=== PATIENT | female | born 1975 | race Caucasian/White ===

== ENCOUNTER 2018-05-12 15:42 | Emergency (ER) | payer OTHER ==
--- OUTSIDE RECORDS SUMMARY | 2018-05-12 15:47 | XMS REPORT | Continuity of Care Document ---
:1975 External Reference #:[id number] Author Name Mine Duque O.D. Address [address] [place] [address] Care Team Providers Name Role Phone Joao Ventura M.D. Primary Care Physician Unavailable Payers Date Identification Numbers Payment Provider Subscriber Policy Number: [id number] [employer] Medicaid Jackelyn Cohen PayID: [id number] [address] [place] [address] Advance Directives Description No Information Available Problems Date Description Provider Status Onset: Anxiety Active Onset: Insomnia Active Onset: 05/04/2015 Tear film insufficiency Mine Duque O.D. Active Onset: 05/04/2015 Myopia Mine Duque O.D. Active Onset: 05/04/2015 Regular astigmatism Mine Duque O.D. Active Onset: 05/04/2015 Presbyopia Mine Duque O.D. Active Onset: 05/04/2015 Vitreous degeneration Mine Duque O.D. Active Onset: Diabetes mellitus Active Family History Date Family Member(s) Observation Comments Father Diabetes Mellitus Type 2 Mother No Current Problems Grandmother Glaucoma Social History Type Date Description Comments Sex Unknown Marital Status Legal Status: Occupation [employer] Work Status Part-Time Employment ETOH Use Currently consumes alcohol Tobacco Use Start: Unknown Patient has never smoked Recreational Drug Use Denies Drug Use Smoking Status Reviewed: 05/03/18 Patient has never smoked Allergies, Adverse Reactions, Alerts Description No Known Drug Allergies Medications Medication Date Status Form Strength Qnty SIG Indications Ordering Provider Bupropion HCL ER Active Tablets ER 300mg Silcoff, (XL) 000 24HR Reynold Shepherd Alprazolam 0 Active Tablets 1mg Silcoff, 000 Reynold Shepherd Chlorthalidone 0 Active Tablets 25mg Unknown 000 Propranolol HCL 0 Active Tablets 60mg Unknown 000 Atorvastatin 0 Active Tablets 10mg Unknown Calcium 000 Glipizide 0 Active Tablets 5mg Unknown 000 Metformin HCL 0 Active Tablets 1000mg (2000 Unknown 000 MG daily) Potassium Active Tablets 75mg Unknown 000 Bupropion HCL ER 0 Hx Tablets ER 150mg Silcoff, (XL) 000 - 24HR Joao, M.DJessie 019 Clonidine HCL 0 Hx Tablets 0.1mg Silcoff, 000 - Joao, MJessieDJessie 019 Immunizations Description No Information Available Vital Signs Description No Information Available Results Description No Information Available Procedures Date Code Description Status 05/04/2015 25508 Determination Of Refractive State Completed 05/04/2015 33435 New Patient Comprehensive Exam Completed Encounters Description No Information Available Plan of Treatment 05/03/2018 - Mine Duque O.D.H04.123 Dry eye syndrome of bilateral lacrimal glandsComments:Both of your eyes appear to be dry. Use artificial tears as directed. You can use the tears more often if you are reading a book or are on the computer, as we tend to blink less, making our eyes dry out more.[facility] offers a few items in our optical department to help alleviate dry eye symptoms.Follow up:1 year You can expect to have your eyes dilated at your next visit. If Dr. Duque orders any additional testing, it may require extra time. We recommend that you bring sunglasses, as dilation drops often make you light sensitive until they wear off. We always recommend you bring someone to drive you home if you are uncomfortable driving with your eyes dilated. If you have any questions before your next visit, feel free to call our office at .E11.9 Type 2 diabetes mellitus without complicationsComments:You have diabetes. I do not detect any changes in both of your retinas from diabetes at this time. Proper control of your diabetes is important for the health of your eyes. Changes in your eyes from diabetes can happen without symptoms, so it is important that you have your eyes examined.H52.13 Myopia, bilateralComments:You have Myopia, or near sightedness. I have given you a prescription for glasses.H52.4 PresbyopiaComments:You have presbyopia. This is when the lens in your eye loses the ability to change focus, and happens as we age. A pair of reading glasses will help you see up close.H52.223 Regular astigmatism, bilateralComments:Astigmatism is a common vision condition that happens when a person's cornea is not symmetrical. Dr. Duque has given you a prescription to correct for this.
--- OUTSIDE RECORDS SUMMARY | 2018-05-12 15:47 | XMS REPORT | Continuity of Care Document ---
:1975 External Reference #:[id number] Author Name Covert, Aimee Care Team Providers Name Role Phone Joao Ventura MD Primary Care Physician Unavailable Payers Date Identification Numbers Payment Provider Subscriber Policy Number: [id number] [employer] Medicaid Jackelyn Cohen PayID: [id number] [address] [address] [place] [address] Advance Directives Description No Information Available Problems Date Description Provider Status Onset: 04/30/2018 Type II diabetes mellitus uncontrolled Matt Ventura MD Active Onset: 04/30/2018 Essential hypertension Matt Ventura MD Active Onset: 04/30/2018 Hyperlipidemia Matt Ventura MD Active Family History Date Family Member(s) Observation Comments Father due to Colon Cancer () - age 67 Father Diabetes Type II Father MT Father Stroke Siblings 3 3 1/2 brothers Social History Type Date Description Comments Sex Unknown Marital Status Lives With Children Occupation [employer] ETOH Use Occasionally consumes 1 glass per day. 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 strength 3 days per week, cardio between, Allergies, Adverse Reactions, Alerts Date Description Reaction Status Severity Comments 04/02/2018 Sulfa Antibiotics Active rash Medications Medication Date Status Form Strength Qnty SIG Indications Ordering Provider Alogliptin 04/30/ Active Tablets 25mg 90tabs Take one E11.65 Gutierrez Benzoate 2019 tablet by MD Audrey mouth daily. Metformin HCL ER 00/ Active Tablets ER 500mg 2 tablets Unknown (Mod) 0000 24HR in the am and 2 tablets pm by mouth every day True Metrix 00/ Active Kit W/Device for Unknown Meter 0000 testing daily True Metrix 00/ Active Strips use to Unknown Blood 0000 test blood Glucosetest sugars Strips fasting and 2 hours after meals Lancets Super 00/ Active Misc Thin 28G weekly Unknown Thin 28G 0000 before breakfast Zolpidem / Active Tablets 5mg 1 at at Unknown Tartrate 0000 bedtime Bupropion HCL ER 00/ Active Tablets ER 300mg 1 by mouth Unknown (XL) 0000 24HR every day Chlorthalidone / Active Tablets 25mg 1 by mouth Unknown 0000 every day Propranolol HCL / Active Tablets 60mg 1 by mouth Unknown 0000 every day Vitamin D3 / Active Capsules 5000Unit 1-2 by Unknown 0000 mouth every day Alprazolam / Active Tablets 1mg up to 3 Unknown 0000 tablets per day as needed Potassium 0000/ Active Tablets ER 20Meq 1 by mouth Unknown Chloride Caren ER 0000 every day True Metrix 00/ Active Strips use to Unknown Blood 0000 test blood Glucosetest sugars Strips fasting and 2 hours after meals Atorvastatin / Active Tablets 10mg 1 by mouth Unknown Calcium 0000 every day Glipizide 04/02/ Hx Tablets 5mg 30tabs take one E11.65 Gutierrez 2019 - tablet by MD Audrey mouth 2018 twice a day Immunizations Description No Information Available Vital Signs Date Vital Result Comment 04/30/2018 4:01pm Height 64 inches 5'4" Weight 146.00 lb w/o shoes Heart Rate 77 /min BP Systolic Sitting 123 mmHg BP Diastolic Sitting 78 mmHg BMI (Body Mass Index) 25.1 kg/m2 04/02/2018 3:53pm Height 64 inches 5'4" Weight 154.00 lb w/o shoes Heart Rate 90 /min BP Systolic Sitting 132 mmHg BP Diastolic Sitting 87 mmHg BMI (Body Mass Index) 26.4 kg/m2 Results Test Date Facility Test Result H/L Range Note Laboratory test 04/30/2018 [facility] Glucose Random 103 finding Laboratory test 04/02/2018 [facility] Glutamic Acid 0.02 nmol/L <=0.02 [address] [place] [address] [phone] Glucose 192 mg/dL High 70-100 C-Peptide 4.3 ng/mL 1.1 - 4.4 2 Aldosterone 7.8 ng/dL <=21 3 Renin 2.4 ng/mL/h 4 Laboratory test finding 04/02/2018 [facility] [place] Glucose Random 179 1 ADDITIONAL INFORMATION This test was developed and its performance characteristics determined by [facility] in a manner consistent with CLIA requirements. This test has not been cleared or approved by the U.S. Food and Drug Administration. Test Performed by: [facility] [place] - [address] [address] Test Performed by: [facility] [place] - [facility] [employer] [address] [place] [id number] 3 ADDITIONAL INFORMATION Reference range for patients 11 years and older is based on upright A.M. collection from subjects without sodium restrictions. This test was developed and its performance characteristics determined by [facility] in a manner consistent with CLIA requirements. This test has not been cleared or approved by the U.S. Food and Drug Administration. Test Performed by: [facility] - [address] [address] REFERENCE VALUE (Peripheral vein specimen) Na-deplete, upright: Mean: 5.9 Range: 2.9-10.8 Na-replete, upright: Mean: 1.0 Range: < or=0.6-3.0 ADDITIONAL INFORMATION Testing performed by Liquid Chromatography-Tandem Mass Spectrometry (LC-MS/MS). This test was developed and its performance characteristics determined by [facility] in a manner consistent with CLIA requirements. This test has not been cleared or approved by the U.S. Food and Drug Administration. Test Performed by: [facility] - [facility] [address], [place] [address] Procedures Description No Information Available Encounters Type Date Location Provider Dx Diagnosis Office Visit 04/02/2018 [place] [facility] Matt Ventura MD Z79.84 nursing home (current) 4:00p [facility] use of oral hypoglycemic drugs E11.65 Type 2 diabetes mellitus with hyperglycemia I10 Essential (primary) hypertension E78.5 Hyperlipidemia, unspecified Office Visit 01/23/2012 4:13p [facility] Rudy Basurto, 578.1 [facility] M.D. [facility] Depressive Disorder Not Elsewhere Spec Office Visit 01/21/2012 4:12p [facility] Theo Urena, 578.1 [facility] N.P. [facility] 311 Depressive Disorder Not Elsewhere Spec Plan of Treatment Future Appointment(s):06/20/2018 9:00 am - Narendra Corye MD at [facility] [id number]/13/2019 - Matt Ventura MDE11.65 Type 2 diabetes mellitus with hyperglycemiaNew Medication:Alogliptin Benzoate 25 mg - Take one tablet by mouth daily.New Xrays:US Abdomen Complete, Ordered: 04/30/18Follow up:3 monthsRecommendations:1. Good work on improving your blood sugars with your lifestyle changes. 2. Stop glipizide and add Alogliptin once daily. 3. If blood sugars increase in afternoon than add glipizide during day 4. Continue Metformin 5. Abdominal ultrasound to evaluate additional causes of diabetes. 6. Follow up in 3 naivwxK37.84 nursing home (current) use of oral hypoglycemic drugs
--- OUTSIDE RECORDS SUMMARY | 2018-05-12 15:48 | XMS REPORT | Continuity of Care Document ---
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 4 - 23 - Luteal phase 1 - 6 Postmenopausal females 16 - 114 5 [id number] 6 Because ethnic data is not always readily available, this report includes an eGFR for both -Americans and non- Americans. The National Kidney Disease Education Program (NKDEP) does not endorse the use of the MDRD equation for patients that are not between the ages of 18 and 70, are , have extremes of body size, muscle mass, or nutritional status, or are non- or non-. According to the National Kidney Foundation, irrespective of diagnosis, the stage of the disease is based on the level of kidney function: Stage Description GFR(mL/min/1.73 m(2)) 1 Kidney damage with normal or decreased GFR 90 2 Kidney damage with mild decrease in GFR 60-89 3 Moderate decrease in GFR 30-59 4 Severe decrease in GFR 15-29 5 Kidney failure <15 (or dialysis) 7 Specimen Hemolyzed. Result may not be valid. Unable to report test result due to hemolysis. 8 void, clear, dark yellow 9 [id number] 10 SEE RESULT BELOW Name: RAKESH COHEN : [address]: Narendra Corey MD Acct: [id number] Unit: [id number] AGE: 41 Location: [facility] Re04/06/16 SEX: F Status: DEP REF SPEC: [id number] АНДРЕЙ: 04/06/16-[address] [facility] [address]: Narendra Corey MD REQ: [id number] RECD: 04/06/16 STATUS: MEGAN DYER DR: Joao Ventura MD _ ORDERED: LEVEL IV/3 COMMENTS: [id number] FINAL DIAGNOSIS 1. Colon, mid sigmoid, biopsy: -- Tubular adenoma. -- No high grade dysplasia or malignancy. 2. Colon, mid right, biopsy: -- Tubular adenoma. -- No high grade dysplasia or malignancy. 3. Colon, ileocecal valve, thickened fold, biopsy: -- Tubular adenoma. -- No high grade dysplasia or malignancy. CLINICAL HISTORY Usual bowel habit - every AM POST-OPERATIVE DIAGNOSIS Colonoscopy to cecum with ease, excellent prep - 3 lesions. Conclusions/Plan : Three polyps; 2 years GROSS DESCRIPTION 1. The specimen is received in formalin labeled, Mid Sigmoid Colon Polyp, and consists of three speckled georges-pink irregular to polypoid soft tissue fragments measuring 0.3 x 0.2 x 0.2 cm, 0.5 x 0.3 x 0.2 cm, and 0.7 x 0.2 x 0.1 cm which are entirely submitted in one cassette. CONTINUED ON NEXT PAGE * ML=Testing performed at Main Lab DEPARTMENT OF PATHOLOGY, [address] [place] [address] Hugh Soto M.D. Director MARIA LUISAMN # [id number] RUN DATE: 04/09/16 [facility] LAB LIVE PAGE 2 Patient: RAKESH COHEN [id number] (Continued) GROSS DESCRIPTION (Continued) GROSS DESCRIPTION (Continued) 2. The specimen is received in formalin labeled, Mid Right Colon Polyp, and consists of a 1.0 x 0.3 x 0.2 cm aggregate of georges-pink irregular soft tissue fragments, which are entirely submitted in one cassette. 3. The specimen is received in formalin labeled, Ileocecal Thickened Fold, and consists of a 1.6 x 0.5 x 0.1 cm aggregate of georges-pink irregular soft tissue fragments, which are entirely submitted in one cassette. Signed (signature on file) Hugh Soto MD [id number] END OF REPORT * ML=Testing performed at [facility] DEPARTMENT OF PATHOLOGY, [address] [place] [address] Hugh Soto M.D. Director [facility] # [id number] 11 This individual DOES NOT have the Prothrombin [id number] mutation. Although the Prothrombin [id number] mutation is absent, the individual may have other genetic and environmental risk factors for thrombosis. If clinically indicated, suggest Coagulation Consultation 95406 (Thrombophilia Profile) to complete the evaluation for an inherited or acquired thrombosing disorder (i.e., thrombophilia). Consider genetic consultation and counseling of potentially affected family members regarding laboratory testing. This test is a direct mutation analysis of leukocyte genomic DNA by the Invader Assay system (Invader, [employer], [place], [place]). Analyte Specific Reagent. This test was developed and its performance characteristics determined by [facility]. It has not been cleared or approved by the U.S. Food and Drug Administration. 12 Brant Mendez M.D. Test Performed by: [place] [address] Bandage Wrapping Machine Operator: Ramón Madrid III, M.D. 13 -- REFERENCE VALUE -- <=13 (Fasting) Test Performed by: [place] [address] Bandage Wrapping Machine Operator: Ramón Madrid III, M.D. 14 Test Performed by: [place] [address] Bandage Wrapping Machine Operator: Ramón Madrid III, M.D. 15 Heparin levels greater than 1 U/ml, inhibitors of the APTT test system (especially lupus anticoagulant), or inhibitors of bovine factor V (such antibodies that may arise in patients treated with certain bovine topical thrombin preparations) may produce a falsely normal Protein S Activity result. Suggest clinical correlation and if indicated consider repeat assay of Protein S Activity and Antigen in the absence of anticoagulation therapy. Test Performed by: [place] [address] Bandage Wrapping Machine Operator: Ramón Madrid III, M.D. 16 This individual DOES NOT have the factor V Leiden (R506Q) mutation. Although the factor V Leiden mutation is absent, the individual may have other genetic and environmental risk factors for thrombosis. If clinically indicated, suggest Coagulation Consultation 52078 (Thrombophilia Profile) to complete the evaluation for an inherited or acquired thrombosing disorder (i.e., thrombophilia). This test is a direct mutation analysis of leukocyte genomic DNA by the Invader Assay system ([employer], [employer], [place], [place]). Analyte Specific Reagent. This test was developed and its performance characteristics determined by [facility]. It has not been cleared or approved by the U.S. Food and Drug Administration. 17 Brant Mendez M.D. Test Performed by: [place] [address] Bandage Wrapping Machine Operator: Ramón Madrid III, M.D. 18 Test Performed by: [place] [address] Bandage Wrapping Machine Operator: Ramón Madrid III, M.D. 19 No evidence of resistance to Activated Protein C (APC). Normal results of Activated Protein-Resistance (APCRV) assay, excluding the patient as a carrier for the Factor V Leiden mutation. Test Performed by: [place] [address] Bandage Wrapping Machine Operator: Ramón Madrid III, M.D. 20 A metabolite of Naproxen, O-desmethylnaproxen, has been shown to interfere with the Jencarmeloik-Jayden method for measuring total bilirubin. Samples from patients who have taken Naproxen have shown spurious elevation in total bilirubin levels. 21 Because ethnic data is not always readily available, this report includes an eGFR for both -Americans and non- Americans. The National Kidney Disease Education Program (NKDEP) does not endorse the use of the MDRD equation for patients that are not between the ages of 18 and 70, are , have extremes of body size, muscle mass, or nutritional status, or are non- or non-. According to the National Kidney Foundation, irrespective of diagnosis, the stage of the disease is based on the level of kidney function: Stage Description GFR(mL/min/1.73 m(2)) 1 Kidney damage with normal or decreased GFR 90 2 Kidney damage with mild decrease in GFR 60-89 3 Moderate decrease in GFR 30-59 4 Severe decrease in GFR 15-29 5 Kidney failure <15 (or dialysis) 22 It is recognized that currently available assays for the detection of antibodies to HIV-1 and/or HIV-2 may not detect all infected individuals. HIV antibodies may be undetectable in some stages of the infection and in some clinical conditions. The performance of this assay has not been established for populations of infants or children. Assayed by Chemiluminescence Microparticle Immunoassay on the Shana Advia Centaur CP. Values obtained with different methods or kits cannot be used interchangeably.The diagnostic specificity of the AD[employer]IA Centaur 1/O/2 Enhanced assay in the low risk population was 99.90% (6052/6058) with a 95% confidence interval of 99.78 to 99.96%. 23 Warning: A positive result is not useful for establishing a diagnosis of syphilis. In most situations, such a result may reflect a prior treated infection; a negative result can exclude a diagnosis of syphilis except for incubating or early primary disease. 24 CHOLESTEROL INTERPRETATION: Desirable: Less than 200 MG/DL Borderline-High Risk: 200-239 MG/DL High-Risk: 240 MG/DL and over 25 HDL INTERPRETATION: Undesirable: High Risk: Less than 40 MG/DL Desirable: Low Risk: Greater than 60 MG/DL 26 LDL INTERPRETATION: Low Risk Optimal Level: LDL Less than 100 MG/DL Near or Above Optimal: LDL 100-129 MG/DL Borderline High Risk: LDL 130-159 MG/DL High Risk: LDL 160-189 MG/DL Very High Risk: LDL Greater than 189 MG/DL 27 A metabolite of Naproxen, O-desmethylnaproxen, has been shown to interfere with the Jendrbarik-Hypoluxo method for measuring total bilirubin. Samples from patients who have taken Naproxen have shown spurious elevation in total bilirubin levels. 28 Please note updated reference range, effective 10/06/09 29 ---- RUN DATE: 03/02/11 [facility] NMI LIVE PAGE 1 RUN TIME: 1500 Specimen Inquiry RUN USER: INTERFACE -- Name: RAKESH COHEN Status: REG REF Re02/28/11 Age/Sex: 36/F Unit#: [id number] Location: [facility] : [birth year] -- Specimen: [id number] SOUT Spec Date: 02/28/[address]: Joao willingham MD Spec Type: CYTOLOGY Received: 03/02/11 Copies to: SOURCE ECTOCERVICAL/ENDOCERVICAL Thin Prep with Reflex HPV Test PATIENT INFORMATION ACTUAL COLLECTION DATE: 02/28/11 ? No POST MENOPAUSAL? No HYSTERECTOMY? No LAST MENSTRUAL PERIOD: 02/08/11 ADEQUACY OF SPECIMEN Satisfactory for evaluation * Transformation zone component identified * DIAGNOSIS NEGATIVE FOR INTRAEPITHELIAL LESION OR MALIGNANCY * Reactive cellular changes associated with * Inflammation (includes typical repair) * This Pap test was evaluated with the assistance of the PT PAL Pap Test Imaging System. Due to cytologic findings at the pc support specialist microscope, comprehensive manual rescreening by a Deoiling Machine Operator was required. The Pap Smear is a screening test designed to aid in the detection of premalign ant and malignant conditions of the uterine cervix. It is not a diagnostic procedure a nd should not be used as the sole means of detecting cervical cancer. Both false- positiv e and false-negative reports do occur. Depending on your risk status, a Pap smear viktor uld be obtained and evaluated every one to three years. Initial evaluation performed by Efrain FLORES(ASCP) 03/02/11 -- DEPARTMENT OF PATHOLOGY, [address] [place] [address] [facility] Permit #[id number] Hugh Soto M.D. Director Lois Suarez M.D. Plasma Processing Centrifuge Operator Dir kofi -- -- RUN DATE: 03/02/11 [facility] NMI LIVE PAGE 2 RUN TIME: 1500 Specimen Inquiry RUN USER: INTERFACE -- Name: DINARAKESH Status: REG REF Re02/28/11 Age/Sex: 36/F Unit#: [id number] Location: [facility] : [birth year] -- -- CONTINUED -- Final Interpretation electronically signed by: LOIS SUAREZ 03/02/11 1458 -- -- DEPARTMENT OF PATHOLOGY, [address] [place] [address] [facility] Permit #[id number] Hugh Soto M.D. Director Lois Suarez M.D. Plasma Processing Centrifuge Operator Dir kofi -- Procedures Date Code Description Status 04/28/2018 [id number] Diabetic Foot Exam Completed 08/18/2016 68724 Electrocardiogram Complete Completed 04/06/2016 [id number] Colonoscopy Completed 10/19/2015 [id number] Mammogram Completed 08/31/2014 59044 Omt 3 To 4 Body Regions Involved Completed 08/31/2014 24021 SC/Im Injections Completed 12/19/2012 09907 Remove Foreign Body Subcutaneous Simple Completed 01/21/2012 60828 Anoscopy Diagnostic Completed Encounters Type Date Location Provider Dx Diagnosis Office Visit 04/28/2018 Main Office Joao Ventura, E11.65 Type 2 diabetes 3:45p M.D. mellitus with hyperglycemia I10 Essential (primary) hypertension F41.9 Anxiety disorder, unspecified F34.1 Dysthymic disorder G47.00 Insomnia, unspecified Office Visit 02/24/2018 3:30p Main Office Joao Ventura, I10 Essential (primary) M.D. hypertension E11.65 Type 2 diabetes mellitus with hyperglycemia Z71.89 Other specified counseling Office Visit 02/03/2018 11:30a Main Office Audrey N95.9 Unspecified Reynold Shepherd menopausal and perimenopausal disorder L65.9 Nonscarring hair loss, unspecified E11.65 Type 2 diabetes mellitus with hyperglycemia Z13.29 Encounter for screening for oth suspected endocrine disorder F41.9 Anxiety disorder, unspecified F34.1 Dysthymic disorder Office Visit 12/02/2017 4:45p Main Office Joao Ventura, F41.9 Anxiety disorder, M.D. unspecified G47.00 Insomnia, unspecified I10 Essential (primary) hypertension Office Visit 06/29/2017 9:00a Main Office Joao Ventura, F41.9 Anxiety disorder, M.D. unspecified F34.1 Dysthymic disorder G47.00 Insomnia, unspecified I10 Essential (primary) hypertension Office Visit 05/10/2017 2:15p Main Office Joao Ventura, I10 Essential (primary) M.D. hypertension F41.9 Anxiety disorder, unspecified F34.1 Dysthymic disorder G47.00 Insomnia, unspecified Office Visit 03/12/2017 10:00a Main Office Joao Ventura I10 Essential (primary) M.D. hypertension Office Visit 02/11/2017 4:30p Main Office Joao Ventura, J06.9 Acute upper M.D. respiratory infection, unspecified I10 Essential (primary) hypertension F41.9 Anxiety disorder, unspecified Z51.81 Encounter for therapeutic drug level monitoring Office Visit 12/08/2016 9:00a Main Office Joao Ventura, F41.9 Anxiety disorder, M.D. unspecified F34.1 Dysthymic disorder G47.00 Insomnia, unspecified I10 Essential (primary) hypertension R87.612 Low grade intrepith lesion cyto smr crvx (LGSIL) Office Visit 08/18/2016 9:30a Main Office Joao Ventura F41.9 Anxiety disorder, M.D. unspecified F34.1 Dysthymic disorder G47.00 Insomnia, unspecified I10 Essential (primary) hypertension Office Visit 06/26/2016 8:30a Main Office Joao Ventura, F41.9 Anxiety disorder, M.D. unspecified F34.1 Dysthymic disorder G47.00 Insomnia, unspecified R03.0 Elevated blood-pressure reading, w/o diagnosis of htn Office Visit 12/24/2015 9:30a Main Office Joao Ventura, Z80.0 Family history of M.D. malignant neoplasm of digestive organs Z12.11 Encounter for screening for malignant neoplasm of colon F41.9 Anxiety disorder, unspecified F34.1 Dysthymic disorder G47.00 Insomnia, unspecified R03.0 Elevated blood-pressure reading, w/o diagnosis of htn Office Visit 06/01/2015 9:30a Main Office Joao Ventura, L71.9 Reynold Person unspecified F41.9 Anxiety disorder, unspecified F34.1 Dysthymic disorder G47.00 Insomnia, unspecified Office Visit 02/23/2015 9:30a Main Office Joao Ventura F41.9 Anxiety disorder, M.DJessie unspecified F34.1 Dysthymic disorder G47.00 Insomnia, unspecified M54.5 Low back pain R03.0 Elevated blood-pressure reading, w/o diagnosis of htn Office Visit 11/24/2014 9:15a Main Office Joao Ventura F34.1 Dysthymic disorder M.DJessie F41.9 Anxiety disorder, unspecified G47.00 Insomnia, unspecified Office Visit 09/03/2014 10:15a Main Office Joao Ventura M.D. 724.2 Lumbago 564.00 Constipation Unspecified V76.10 Screening For Malignant Neoplasm Breast 300.4 Dysthymic Disorder 300.00 Anxiety State Unspec 780.52 Insomnia Unspecified Office Visit 08/31/2014 10:45a Main Office Isaac Campbell D.O. 724.2 Lumbago 729.1 Myalgia & Myositis Unspec 739.3 Lesion Nonallopathic Lumbar Region Not Elsewhere Class 739.5 Lesion Nonallopathic Pelvic Region Not Elsewhere Class 739.4 Lesion Nonallopathic Sacral Region Not Elsewhere Class 724.3 Sciatica E927.0 Overexertion From Sudden Strenous Movement E013.9 Other Household Maintenance Office Visit 05/28/2014 2:45p Main Office Joao Ventura, 300.00 Anxiety State M.DJessie Unspec 780.52 Insomnia Unspecified 300.4 Dysthymic Disorder V76.10 Screening For Malignant Neoplasm Breast V76.12 Screening Mammogram Malig Alek Other Office Visit 02/01/2014 4:30p Main Office Joao Ventura, 300.00 Anxiety State M.D. Unspec 780.52 Insomnia Unspecified 796.2 Blood Pressure Reading Elevated W/O Hypertension Office Visit 10/05/2013 4:00p Main Office Joao Ventura, 300.00 Anxiety State M.D. Unspec 780.52 Insomnia Unspecified 695.3 Rosacea 782.1 Rash & Other Nonspec Skin Eruption 796.2 Blood Pressure Reading Elevated W/O Hypertension V76.12 Screening Mammogram Malig Alke Other Office Visit 06/24/2013 9:15a Main Office Joao Ventura, 300.00 Anxiety State M.D. Unspec 300.4 Dysthymic Disorder 780.52 Insomnia Unspecified 695.3 Rosacea 782.1 Rash & Other Nonspec Skin Eruption Office Visit 04/20/2013 4:30p Main Office Joao Ventura, 300.00 Anxiety State M.D. Unspec 780.52 Insomnia Unspecified 695.3 Rosacea Office Visit 02/18/2013 9:15a Main Office Joao Ventura, 300.00 Anxiety State M.D. Unspec 300.4 Dysthymic Disorder 796.2 Blood Pressure Reading Elevated W/O Hypertension 780.52 Insomnia Unspecified 782.1 Rash & Other Nonspec Skin Eruption Office Visit 12/19/2012 10:15a Main Office Joao Ventura, 300.00 Anxiety State M.D. Unspec 300.4 Dysthymic Disorder 796.2 Blood Pressure Reading Elevated W/O Hypertension 917.6 Injury Superficial Foreign Body Foot & Toes W/O Infection Office Visit 11/01/2012 10:00a Main Office Joao Ventura, 300.4 Dysthymic Disorder M.D. 300.00 Anxiety State Unspec 796.2 Blood Pressure Reading Elevated W/O Hypertension Office Visit 09/03/2012 4:30p Main Office Joao Ventura, 796.2 Blood Pressure M.D. Reading Elevated W/O Hypertension 300.4 Dysthymic Disorder 300.00 Anxiety State Unspec 782.1 Rash & Other Nonspec Skin Eruption Office Visit 06/25/2012 8:45a Main Office Joao Ventura, 300.4 Dysthymic Disorder M.D. 300.00 Anxiety State Unspec 719.41 Pain Joint Shoulder Region 780.52 Insomnia Unspecified 782.1 Rash & Other Nonspec Skin Eruption 305.03 Alcohol Abuse In Remission Office Visit 04/28/2012 3:30p Main Office Joao Ventura, 300.4 Dysthymic Disorder M.D. 300.00 Anxiety State Unspec 719.41 Pain Joint Shoulder Region Office Visit 03/19/2012 9:30a Main Office Joao Ventura, 300.4 Dysthymic Disorder M.D. 300.00 Anxiety State Unspec 695.3 Rosacea 780.52 Insomnia Unspecified 557.9 Vascular Insufficiency Of Intestine Unspecified Office Visit 01/31/2012 8:55a Main Office Joao Ventura, 557.9 Vascular M.D. Insufficiency Of Intestine Unspecified 789.07 Pain Abdominal Generalized 300.4 Dysthymic Disorder 300.00 Anxiety State Unspec 695.3 Rosacea 305.03 Alcohol Abuse In Remission 780.52 Insomnia Unspecified Office Visit 01/21/2012 11:15a Main Office Johnathon Cardenas 569.3 Hemorrhage Rectum & Reynold Quintana Anus 787.91 Diarrhea 276.8 Hypopotassemia 789.07 Pain Abdominal Generalized Office Visit 10/16/2011 4:00p Main Office Joao Ventura, 300.4 Dysthymic Disorder M.D. 300.00 Anxiety State Unspec 695.3 Rosacea 305.03 Alcohol Abuse In Remission Office Visit 07/09/2011 4:30p Main Office Joao Ventura, 300.4 Dysthymic Disorder M.D. 300.00 Anxiety State Unspec 780.52 Insomnia Unspecified 695.3 Rosacea 790.21 Impaired Fasting Glucose Office Visit 05/08/2011 4:00p Main Office Joao Ventura, 300.4 Dysthymic Disorder M.D. 300.00 Anxiety State Unspec 780.52 Insomnia Unspecified 695.3 Rosacea 784.0 Headache Office Visit 02/28/2011 3:30p Main Office Joao Ventura M.D. 695.3 Rosacea 300.4 Dysthymic Disorder 780.52 Insomnia Unspecified V76.2 Screening Malignant Neoplasm Cervix 704.8 Hair & Hair Follicle Diseases Other Spec Office Visit 01/31/2011 3:30p Main Office Joao Ventura M.D. 695.3 Rosacea 300.4 Dysthymic Disorder 305.00 Alcohol Abuse Unspec 300.00 Anxiety State Unspec V69.2 Sexual Behavior High Risk V77.91 Screening For Lipoid Disorders V12.21 Personal History Of Gestational Diabetes v04.81 Need For Prophylactic Vaccination & Inoculation/Influenza v07.2 Prophylactic Immunotherapy v06.1 Airpyjylnk-Noxhypx-Avdvexwy Combined (DTaP) Plan of Treatment Future Appointment(s):07/30/2018 3:45 pm - Joao Ventura M.D. at Main [facility]9104/28/2018 - Joao Ventura M.D.E11.65 Type 2 diabetes mellitus with hyperglycemiaComments:A1c much better, down to 6.6%. Continue curent meds. She will report back if having more frequent hypoglycemias.Continue atorvastatin, following both AHA and ADA guidelines.Follow up:RTO 3-4 months w/ A1cI10 Essential (primary) bvzquksrigkeC81.9 Anxiety disorder, unspecifiedComments: Doing well. Continue current Tx.F34.1 Dysthymic disorderComments:Doing well. Continue current TxG47.00 Insomnia, unspecifiedComments:Doing much better
[2018-05-12 16:23] VITALS: BP 123/75
--- NOTE | 2018-05-12 17:15 | UC ---
FLU HPI - HPI Summary HPI Summary: 43 yo female presents with fever, body aches, fatigue, and decreased appetite for the last 2 days. She works for [employer] and has been exposed to many coworkers and patients with the flu. She is concerned she may have it. Fever yesterday was around 102F that resolved with tylenol/ibuprofen. She denies sinus symptoms , sore throat, cough, SOB, chest pain, abdominal pain, dysuria. - History of Current Complaint Chief Complaint: UCGeneralIllness Stated Complaint: FEVER Time Seen by Provider: 05/12/18 17:15 Hx Obtained From: Patient Hx Last Menstrual Period: [id number] Onset/Duration: Sudden Onset Severity Currently: Moderate Severity Initially: Moderate Pain Intensity: 6 Pain Scale Used: 0-10 Numeric - Allergy/Home Medications Allergies/Adverse Reactions: Allergies Allergy/AdvReac Type Severity Reaction Status Date / Time No Known Allergies Allergy Verified 05/12/18 16:24 Home Medications: Home Medications glipiZIDE TAB* [Glucotrol TAB*] 2.5 mg PO BID 05/12/18 [History Confirmed ] PMH/Surg Hx/FS Hx/Imm Hx Endocrine History: Diabetes Psychological History: Anxiety, Depression - Surgical History Surgical History: Yes Surgery Procedure, Year, and Place: cervical LEEP - Family History Known Family History: Positive: Diabetes - Social History Occupation: Employed Full-time Lives: With Family Alcohol Use: Weekly Substance Use Type: None Smoking Status (MU): Former Smoker Review of Systems All Other Systems Reviewed And Are Negative: Yes Constitutional: Positive: Fever, Chills, Fatigue, Other - Body aches Skin: Positive: Negative Eyes: Positive: Negative ENT: Positive: Negative Respiratory: Positive: Negative Cardiovascular: Positive: Negative Gastrointestinal: Positive: Negative Neurovascular: Positive: Negative Neurological: Positive: Negative Psychological: Positive: Negative Physical Exam - Summary Physical Exam Summary: GENERAL: NAD. WDWN. No pain distress. SKIN: No rashes, sores, lesions, or open wounds. HEENT: Head: AT/NC Eyes: EOM intact. Conjunctiva clear without inflammation or discharge. Ears: Hearing grossly normal. TMs intact, no bulging, erythema, or edema. Nose: Nasal mucosa pink and moist. NTTP maxillary and frontal sinus. Throat: Posterior oropharynx without exudates, erythema, or tonsillar enlargement. Uvula midline. NECK: Supple. Nontender. No lymphadenopathy. CHEST: CTAB. No r/r/w. No accessory muscle use. Breathing comfortably and in no distress. CV: RRR. Without m/r/g. Pulses intact. Cap refill <2seconds NEURO: Alert. PSYCH: Age appropriate behavior. Triage Information Reviewed: Yes Vital Signs: Initial Vital Signs Temp 100 F 05/12/18 16:17 Pulse 95 05/12/18 16:17 Resp 16 05/12/18 16:17 BP 123/75 05/12/18 16:17 Pulse Ox 98 05/12/18 16:17 Laboratory Tests 05/12/18 17:20 Influenza A (Rapid) Negative Influenza B (Rapid) Negative Vital Signs Reviewed: Yes Flu Course/Dx - Course Course Of Treatment: POC flu negative. Suspect viral illness. Advised to rest and drink plenty of fluids. Take tylenol for fever and discomfort - f/u if symptoms do not improve. - Differential Dx/Diagnosis Provider Diagnosis: Viral syndrome Discharge - Sign-Out/Discharge Documenting (check all that apply): Patient Departure All imaging exams completed and their final reports reviewed: No Studies - Discharge Plan Condition: Stable Disposition: HOME Patient Education Materials: Viral Syndrome (ED) Forms: *Work Release Referrals: Joao Ventura MD [Primary Care Provider] - Additional Instructions: If you develop a fever, shortness of breath, chest pain, new or worsening symptoms - please call your PCP or go to the ED. - Billing Disposition and Condition Condition: STABLE Disposition: Home
[2018-05-12 17:32] LABS: Influenza A Molecular NEGATIVE (Negative); Influenza B Molecular NEGATIVE (Negative)
[2018-05-12 18:06] LABS: Influenza A Molecular NEGATIVE (Negative); Influenza B Molecular NEGATIVE (Negative)
== END 2018-05-12 18:20 | disposition home or self-care (01) ==
LOC: UCEAST 15:42
DX: B34.9 Viral infection, unspecified (principal); R50.9 Fever, unspecified; R53.83 Other fatigue; E11.9 Type 2 diabetes mellitus without complications; Z87.891 Personal history of nicotine dependence
CPT/HCPCS: 99211; G0463